=== PATIENT | female | born 1980 | race Two or more races ===

== ENCOUNTER 2020-02-29 14:05 | Outpatient (CLI) | payer OTHER | END 2020-02-29 14:18 | disposition home or self-care (01) | LOC: TOM 14:05 | PROVIDERS: ATTEND Pediatrics | DX: G44.059 Short lasting unilateral neuralgiform headache with conjunctival injection and tearing (SUNCT), not intractable (principal) ==

== ENCOUNTER 2020-11-21 10:00 | Outpatient (CLI) | payer OTHER | END 2020-11-21 10:15 | disposition home or self-care (01) | LOC: PPH VACUNA 10:00 | PROVIDERS: ATTEND Emergency Medicine Pediatric Emergency Medicine | DX: Z23 Encounter for immunization (principal) ==

== ENCOUNTER 2021-10-18 13:12 | Outpatient (CLI) | payer OTHER | END 2021-10-18 13:20 | disposition home or self-care (01) | LOC: RAD 13:12 | PROVIDERS: ATTEND Pediatrics | DX: S80.01XA Contusion of right knee, initial encounter (principal) ==